=== PATIENT | male | born 1970 | race Caucasian/White ===

== ENCOUNTER 2017-02-16 08:59 | Outpatient (CLI) | payer OTHER ==
--- NOTE | 2017-02-16 10:28 | HP ---
DATE OF SERVICE: 02/16/2017 HISTORY OF PRESENT ILLNESS: Mr. Herb Meier is a very pleasant 46-year-old gentleman accompanie d by his who presents to the Wound Center for evaluation of a wound of the right medial ankle. The patient underwent ORIF of a right trimalleolar ankle fracture on 01/13/2017 for treatment of an open right ankle fracture dislocation. The patient states that the fracture resulted from a fall. The patient states that the wound was closed primarily at surgery. He states that at a second foll owup visit with Orthopedic Surgery, the wound was opened and wet to dry dressing changes were initia josué. At a third followup visit with Orthopedic Surgery, the patient was referred to the Wound [facility] for the initiation of negative pressure therapy. PAST MEDICAL HISTORY: Negative for any chronic medical conditions including diabetes mellitus, hype rtension, or coronary artery disease. PAST SURGICAL HISTORY: 1. Left carpal tunnel release. 2. Right carpal tunnel release. 3. Right shoulder surgery. 4. Right second finger surgery. 5. Surgical drainage of rectal abscess. 6. ORIF of right trimalleolar ankle fracture, 01/13/2017. MEDICATIONS: 1. Hydrocodone. 2. Advil. 3. Advil PM. ALLERGIES: No known diagnosed allergies. SOCIAL HISTORY: Significant for tobacco use of 1/2 of a pack of cigarettes per day for 10 years. T he patient states that he stopped smoking on 01/12/2017. The patient admits to only the occasional consumption of alcohol since his teenage years. FAMILY HISTORY: Significant for diabetes mellitus. The patient states that his mother, aunt, and m aternal grandfather were all diagnosed with diabetes mellitus. Family history is also significant f or coronary artery disease. The patient states that his grandfather was diagnosed with coronary art rubia disease. PHYSICAL EXAMINATION: VITAL SIGNS: Temperature 98.8, pulse 78, respirations 18, blood pressure 138/96. GENERAL: A 46-year-old gentleman lying on table in examination room in no acute distress. HEENT: Normocephalic, atraumatic. NECK: No nuchal rigidity. CHEST: Clear to auscultation. CARDIOVASCULAR: Regular rate and rhythm. ABDOMEN: Soft. EXTREMITIES: A wound of the right medial ankle is present which measures approximately 1.8 x 5.7 cm . Granulation tissue is present within the wound margins. No purulent drainage is associated with the wound. No erythema of the skin surrounding the wound is present. No maceration of the skin of the periwound is noted. A posterior tibial pulse is easily palpable on the right. Edema of the rig ht foot and lower leg is present on exam today. ASSESSMENT AND PLAN: Right medial ankle wound as described above. Silverlon, Webril, and the Planspot ban two-layer compression system will be applied to the right medial ankle wound today. Arrangement s will also be made for the initiation of negative pressure therapy with dressing changes of the wou nd VAC 2-3 times per week here in the Wound Center. No antibiotics will be prescribed today based u carlos alberto the appearance of the wound. I will see Mr. Meier again in 1 week.
[2017-02-16] MEDS ORDERED: Sodium Chloride 0.9% 15 ML NEB ONE (20:58)
== END 2017-02-16 09:00 | disposition home or self-care (01) ==
LOC: WCC 08:59
PROVIDERS: ATTEND Family Medicine
DX: T81.89XD Other complications of procedures, not elsewhere classified, subsequent encounter (principal)
CPT/HCPCS: 97602; 99204; A4218; G0463

== ENCOUNTER 2017-02-21 07:29 | Outpatient (CLI) | payer OTHER ==
--- NOTE | 2017-02-21 08:56 | PRG ---
DATE OF SERVICE: 02/21/2017 HISTORY: Mr. Herb Meier is a very pleasant 46-year-old gentleman accompanied by his who p resents to the Wound Center for evaluation of a wound of the right medial ankle. The patient underw ent ORIF of right trimalleolar ankle fracture on 01/13/2017 for treatment of an open right ankle fra cture dislocation. The patient stated that the fracture resulted from a fall. The patient stated t hat the wound was closed primarily at surgery. He stated that at a second followup visit with Ortho pedic Surgery, the wound was opened and wet to dry dressing changes were initiated. At a third foll ow up visit with Orthopedic Surgery, the patient was referred to the Wound Center for the initiation of negative pressure therapy. Silverlon, Webril, and the 3M Coban 2 layer compression system were applied to the right medial ankle wound at the time of the patient's visit on 02/16/2017. PHYSICAL EXAMINATION: VITAL SIGNS: Pulse 95, respirations 18, blood pressure 127/84. EXTREMITIES: A wound of the right medial ankle is present, which measures approximately 4.5 x 2.0 c m. The dimensions of the wound at the time of the patient's visit on 02/16/2017 were approximately 1.8 x 5.7 cm. Granulation tissue is present within the wound margins. No purulent drainage is asso ciated with the wound. No erythema of the skin surrounding the wound is present. No maceration of the skin of the periwound is noted. A posterior tibial pulse is easily palpable on the right. No s ignificant edema of the right foot or lower leg is present on exam today. ASSESSMENT AND PLAN: Right medial ankle wound as described above. Negative pressure therapy will b e initiated today with dressing changes of the wound VAC 2 times per week here in the Wound Center. The wound VAC will be placed to settings of 125 mmHg, continuous. The patient will be seen by Orth opedic Surgery in 1 week. I will see Mr. Meier again in two weeks.
== END 2017-02-21 07:30 | disposition home or self-care (01) ==
LOC: WCC 07:29
PROVIDERS: ATTEND Family Medicine
DX: T81.89XD Other complications of procedures, not elsewhere classified, subsequent encounter (principal)
CPT/HCPCS: 97605

== ENCOUNTER 2017-02-24 08:16 | Outpatient (CLI) | payer OTHER ==
[2017-02-24] MEDS ORDERED: Sodium Chloride 0.9% 15 ML NEB ONE (16:22)
== END 2017-02-24 08:17 | disposition home or self-care (01) ==
LOC: WCC 08:16
PROVIDERS: ATTEND Family Medicine
DX: T81.89XD Other complications of procedures, not elsewhere classified, subsequent encounter (principal)
CPT/HCPCS: 97605; A4218

== ENCOUNTER 2017-02-28 08:09 | Outpatient (CLI) | payer OTHER ==
[2017-02-28] MEDS ORDERED: Sodium Chloride 0.9% 15 ML NEB ONE (13:47)
== END 2017-02-28 08:10 | disposition home or self-care (01) ==
LOC: WCC 08:09
PROVIDERS: ATTEND Family Medicine
DX: T81.89XD Other complications of procedures, not elsewhere classified, subsequent encounter (principal)
CPT/HCPCS: 97605; A4218

== ENCOUNTER 2017-03-03 08:58 | Outpatient (CLI) | payer OTHER ==
[2017-03-03] MEDS ORDERED: Lidocaine 2% Jelly 5 ML TUBE ONE (17:20)
== END 2017-03-03 08:59 | disposition home or self-care (01) ==
LOC: WCC 08:58
PROVIDERS: ATTEND Family Medicine
DX: T81.89XD Other complications of procedures, not elsewhere classified, subsequent encounter (principal)
CPT/HCPCS: 97602

== ENCOUNTER 2017-03-16 07:48 | Outpatient (CLI) | payer OTHER ==
--- NOTE | 2017-03-16 08:55 | PRG ---
DATE OF SERVICE: 03/16/2017 HISTORY: Mr. Herb Meier is a very pleasant 46-year-old gentleman accompanied by his who p resents to the Wound Center for evaluation of a wound of the right medial ankle. The patient underw ent ORIF of a right trimalleolar ankle fracture on 01/13/2017 for treatment of an open right ankle f racture dislocation. The patient stated that the fracture resulted from a fall. The patient stated that the wound was closed primarily at surgery. He stated that at a second followup visit with [facility], the wound was opened and wet to dry dressing changes were initiated. At a third fo llowup visit with Orthopedic Surgery, the patient was referred to the Wound Center for the initiatio n of negative pressure therapy. The patient has completed a course of negative pressure therapy and is now receiving dressing changes of Silverlon on a daily basis after cleansing and irrigation. PHYSICAL EXAMINATION: VITAL SIGNS: Temperature 98.2, pulse 80, respirations 18, and blood pressure 139/92. EXTREMITIES: A wound of the right medial ankle is present which measures approximately 0.5 x 3.0 cm . The dimensions of the wound at the time of the patient's visit on 02/21/2017 were approximately 4 .5 x 2.0 cm. Granulation tissue is present within the wound margins. No purulent drainage is assoc iated with the wound. No erythema of the skin surrounding the wound is present. No maceration of t he skin of the periwound is noted. A dorsalis pedis pulse is easily palpable on the right. A poste rior tibial pulse is also easily palpable on the right. No significant edema of the right foot or l ower leg is present on exam today. ASSESSMENT AND PLAN: Right medial ankle wound as described above. The patient has completed a cour se of negative pressure therapy and dressing changes of Silverlon will be continued on a daily basis after cleansing and irrigation. I will see Mr. Meier again in two weeks.
== END 2017-03-16 07:49 | disposition home or self-care (01) ==
LOC: WCC 07:48
PROVIDERS: ATTEND Family Medicine
DX: S91.001D Unspecified open wound, right ankle, subsequent encounter (principal)
CPT/HCPCS: 97602

== ENCOUNTER 2017-05-27 07:20 | Day surgery (SDC) | payer OTHER ==
[2017-05-26 10:14] VITALS: BMI 34.4
[2017-05-27] MEDS ORDERED: CEFAZOLIN/Water 2 GM/20 ML SYRINGE ONE (08:22)
[2017-05-27] MEDS ORDERED: Ondansetron HCl/PF 4 MG/2 ML Vial ONE (08:59)
[2017-05-27] MEDS ORDERED: PROPOFOL 200 MG/20 ML VIAL ONE (08:59)
[2017-05-27] MEDS ORDERED: Dexamethasone 20 MG/5 ML VIAL ONE (08:59)
[2017-05-27] MEDS ORDERED: Lidocaine 1% PF 5 ML VIAL ONE (08:59)
[2017-05-27] MEDS ORDERED: Fentanyl 100 MCG/2 ML VIAL ONE ×2 (10:32→12:49)
[2017-05-27] MEDS ORDERED: Midazolam HCl 2 mg/2 ml Vial ONE (10:32)
--- NOTE | 2017-05-27 13:18 | OP ---
DATE OF PROCEDURE: 05/27/2017 PROCEDURE PERFORMED: Right ankle syndesmosis screw removal. PREOPERATIVE DIAGNOSIS: History of bimalleolar ankle fracture with syndesmosis screw that now requir es removal. POSTOPERATIVE DIAGNOSIS: History of bimalleolar ankle fracture with syndesmosis screw that now requi res removal. COMPLICATIONS: None. ESTIMATED BLOOD LOSS: Minimal. SURGEON: Lincoln Cruz M.D. ANESTHESIA: General. INDICATIONS: Mr. Meier is a 46-year-old male who injured his ankle. He was treated with open red uction and internal fixation. He required syndesmosis screw for instability. He has now been indica josué for screw removal to free up his range of motion and prevent screw breakage. Risks have been rev iewed. DESCRIPTION OF PROCEDURE: Mr. Meier was identified in the preoperative holding area. His correct extremity was marked. He was carried to the operating room. He was positioned supine. General ane sthesia was induced. A multidisciplinary timeout was performed. He was given intravenous antibiotic s. At this point, we proceeded to evaluate the ankle with x-ray. An appropriate start point for our inc ision was made. We dissected down through the subcutaneous tissue and exposed the screw head. At th is point, we removed the screw with an appropriate screwdriver. We took x-ray images. We then perfo rmed a stress view x-ray, which was negative. We irrigated and closed with a 3-0 nylon suture and a sterile dressing was applied. The patient was taken to the recovery room in good condition.
--- NOTE | 2017-05-27 13:37 | RAD ---
INTRAOPERATIVE FLUOROSCOPY: History: Removal of hardware. Comparison: None. FINDINGS: Two fluoroscopic views are submitted for interpretation. There are two separate screws transversing t he medial malleolus. There is an internal fixation plate traversing the distal fibular diaphysis. There appears to be removal of a syndesmotic screw at the distal tibia fibula. IMPRESSION: Fluoroscopy as above. POS: [facility]
== END 2017-05-27 13:45 | disposition home or self-care (01) ==
LOC: SDC 07:20
PROVIDERS: ATTEND Orthopaedic Surgery
PROC: 0SPF04Z Removal of Internal Fixation Device from Right Ankle Joint, Open Approach (ICD-10-PCS; principal; 2017-05-27)
DX: Z47.2 Encounter for removal of internal fixation device (principal); Z98.890 Other specified postprocedural states; Z87.891 Personal history of nicotine dependence
CPT/HCPCS: 76001; 96374; J1100; J2001; J2250; J2405; J2704; J3010